=== PATIENT | female | born 2000 | race African-American/Black ===

== ENCOUNTER 2019-05-04 20:15 | Outpatient (CLI) | payer MEDICAID ==
[~2019-05-04] VITALS: Ht 157.5 cm; Wt 105.9 kg
--- NOTE | 2019-05-04 20:15 | NUR ---
2014- Pt G1L0 27 weeks pt seen in [place] arrived on unit ambulatory with complaints of increased mucus and light brown discharge while at work tonight. Pt denies any contractions, vaginal bleeding, leaking of fluid and reports normal movement. Pt does report some back pain and occassional "cramping" when is she is on her feet all day at work but stops with rest. EFM and toco monitors started. Vital signs WNL. 2044- Information reviewed with Dr. Vickers. Orders for SVE received. 2049- SVE by this RN closed/thick/high and posterior position. Orders for discharge home received from Dr. Vickers. 2099- Discharge instructions and precautions reviewed with pt. Pt verbalized an understanding, agreed with the plan and states no questions or concerns at this time.
[2019-05-04] MEDS ORDERED: PRENATAL (20:37)
[2019-05-04] MEDS ORDERED: MASON NATURAL2000 IU (20:38)
[2019-05-04 20:53] VITALS: BP 118/66; PULSE 84
== END 2019-05-04 21:04 | disposition home or self-care (01) ==
LOC: LDRO 20:15 → LDR 20:57 → LDRO 21:04
DX: Z34.92 Encounter for supervision of normal pregnancy, unspecified, second trimester (principal); Z3A.27 27 weeks gestation of pregnancy
CPT/HCPCS: OP